=== PATIENT | female | born 1990 | race American Indian/Alaskan Native ===

== ENCOUNTER 2018-11-17 02:57 | Emergency (ER) | payer SELFPAY ==
[2018-11-17 03:14] VITALS: BP 130/80
[2018-11-17] MEDS ORDERED: ULTRAM PO ONE (06:06)
[2018-11-17] MEDS ORDERED: CLEOCIN PO ONE (06:06)
--- NOTE | 2018-11-17 06:11 | Emergency Department Report ---
"- General Chief complaint: Skin/Abscess/Foreign Body Stated complaint: CYST Time Seen by Provider: 11/17/18 06:06 Source: patient Mode of arrival: Ambulatory Limitations: No Limitations - History of Present Illness Initial comments: Patient 28 Primary female who presents for abscess left breast second abscess in a year however patient has not been able to obtain biopsy and treatment without breast surgery requesting referral to Located within [facility] Center current abscess is left medial breast no drainage no fever chills no nausea vomiting no rigors painful to touch MD complaint: abscess/boil Onset/Timin -: week(s) Tetanus Up to Date: yes Severity: moderate Severity scale (0 -10): 4 Quality: aching, other (itching ) Consistency: constant Improves with: none Worsens with: palpation, movement Context: other (recurring abscess breast ) Associated symptoms: itching - Related Data Previous Rx's Medication Instructions Recorded Last Taken Type Clindamycin [Clindamycin CAP] 300 mg PO Q6H 10 Days #40 capsule 11/17/18 Unknown Rx Tramadol HCl [Ultram] 50 mg PO Q6H PRN #12 tablet 11/17/18 Unknown Rx Allergies Allergy/AdvReac Type Severity Reaction Status Date / Time No Known Allergies Allergy Unverified 11/17/18 03:01 Abscess Boil HPI - HPI Chief Complaint: Skin/Abscess/Foreign Body Stated Complaint: CYST Time Seen by Provider: 11/17/18 06:06 Home Medications: Previous Rx's Medication Instructions Recorded Last Taken Type Clindamycin [Clindamycin CAP] 300 mg PO Q6H 10 Days #40 capsule 11/17/18 Unknown Rx Tramadol HCl [Ultram] 50 mg PO Q6H PRN #12 tablet 11/17/18 Unknown Rx Allergies/Adverse Reactions: Allergies Allergy/AdvReac Type Severity Reaction Status Date / Time No Known Allergies Allergy Unverified 11/17/18 03:01 ED Review of Systems ROS: Stated complaint: CYST Other details as noted in HPI Constitutional: denies: chills, fever Eyes: denies: eye pain, eye discharge, vision change ENT: denies: ear pain, throat pain Respiratory: denies: cough, shortness of breath, wheezing Cardiovascular: denies: chest pain, palpitations Endocrine: no symptoms reported Gastrointestinal: denies: abdominal pain, nausea, diarrhea Genitourinary: denies: urgency, dysuria, discharge Musculoskeletal: denies: back pain, joint swelling, arthralgia Skin: lesions (left breast abscess ). denies: rash Neurological: denies: headache, weakness, paresthesias Psychiatric: denies: anxiety, depression Hematological/Lymphatic: denies: easy bleeding, easy bruising ED Past Medical Hx - Past Medical History Previous Medical History?: No - Surgical History Additional Surgical History: Skin Abscesses - Social History Smoking Status: Never Smoker Substance Use Type: None - Medications Home Medications: Home Medications Medication Instructions Recorded Confirmed Last Taken Type Clindamycin [Clindamycin CAP] 300 mg PO Q6H 10 Days #40 capsule 11/17/18 Unknown Rx Tramadol HCl [Ultram] 50 mg PO Q6H PRN #12 tablet 11/17/18 Unknown Rx ED Physical Exam - General Limitations: No Limitations General appearance: alert, in no apparent distress - Head Head exam: Present: atraumatic, normocephalic - Eye Eye exam: Present: normal appearance, PERRL, EOMI - ENT ENT exam: Present: mucous membranes moist - Neck Neck exam: Present: normal inspection, full ROM. Absent: tenderness, lymphadenopathy, thyromegaly - Respiratory Respiratory exam: Present: normal lung sounds bilaterally. Absent: respiratory distress, wheezes, stridor - Cardiovascular Cardiovascular Exam: Present: regular rate, normal rhythm, normal heart sounds. Absent: systolic murmur, diastolic murmur, rubs, gallop - GI/Abdominal GI/Abdominal exam: Present: soft, normal bowel sounds. Absent: tenderness, rebound, bruit, hernia - Rectal Rectal exam: Present: deferred - Extremities Exam Extremities exam: Present: normal inspection, full ROM. Absent: tenderness - Back Exam Back exam: Present: normal inspection, full ROM. Absent: tenderness, CVA tenderness (R), CVA tenderness (L), rash noted - Neurological Exam Neurological exam: Present: alert, oriented X3, CN II-XII intact, normal gait, reflexes normal - Psychiatric Psychiatric exam: Present: normal affect, normal mood - Skin Skin exam: Present: warm, dry, intact, normal color, erythema (left breast absces 2x2 linsey irreg 9 o'clock firm pain no drainage, no fever no nippe tenderness no nipple discharge no axillary pain no axillary lymph noted ). Absent: rash ED Course Vital Signs 11/17/18 03:09 Temperature 98.6 F Pulse Rate 72 Respiratory 16 Rate Blood Pressure 130/80 O2 Sat by Pulse 100 Oximetry ED Medical Decision Making - Medical Decision Making There is a left breast abscess as requested by patient was referred to [facility] [place] as she lives [facility] is no active drainage at this time abscesses at 9:00 2 x 2 centimeters there is no nipple drainage bloody nipple drainage no axillary lymph noted plan referr to [facility], rx with clindamycin ultram, pt will follow up with [facility] today. pt verbalized agreement and understanding of same. Critical care attestation.: If time is entered above; I have spent that time in minutes in the direct care of this critically ill patient, excluding procedure time. ED Disposition Clinical Impression: Abscess of breast Disposition: - TO HOME OR SELFCARE Is pt being admited?: No Does the pt Need Aspirin: No Condition: Stable Instructions: Breast Abscess Drainage (ED) Additional Instructions: Dr. Maria R aNranjo [place] [id number] | | Wednesday - Wednesday 8 a.m. to 4:30 p.m. Prescriptions: Clindamycin [Clindamycin CAP] 300 mg PO Q6H 10 Days #40 capsule Tramadol HCl [Ultram] 50 mg PO Q6H PRN #12 tablet PRN Reason: pain Referrals: CLAIRE KIRKPATRICK MD [Primary Care Provider] - 3-5 Days Forms: Work/School Release Form(ED) Time of Disposition: 06:25"
== END 2018-11-17 06:32 | disposition home or self-care (01) ==
LOC: ED 02:57
DX: N61.1 Abscess of the breast and nipple (principal)
CPT/HCPCS: 99282